=== PATIENT | female | born 1980 | race Hispanic/Latino ===

== ENCOUNTER 2017-05-11 16:31 | Emergency (ER) | payer OTHER ==
[2017-05-11 16:45] VITALS: BP 113/70; PULSE 82; RESP 20; TEMP 97.7; O2SAT 99
--- NOTE | 2017-05-11 17:16 | ED PDOC ---
HPI: Abdomen Time Seen by Provider: 05/11/17 17:14 Chief Complaint (Nursing): Abdominal Pain Chief Complaint (Provider): RLQ pain History Per: Patient History/Exam Limitations: no limitations Onset/Duration Of Symptoms: Days (started at 5am) Outside of [place] travel?: No Current Symptoms Are (Timing): Still Present Location Of Pain/Discomfort: RLQ Quality Of Discomfort: Sharp, Cramping, Stabbing Associated Symptoms: Chills, Loss Of Appetite. denies: Fever, Nausea, Vomiting , Diarrhea, Back Pain, Chest Pain, Constipation, Urinary Symptoms Exacerbating Factors: Movement Alleviating Factors: OTC Meds (took motrin now pain 11/15 was 06/17 ) Last Bowel Movement: Yesterday Abnormal Vaginal Bleeding: No Past Medical History Reviewed: Historical Data, Nursing Documentation, Vital Signs Vital Signs: Last Vital Signs Temp 97.7 F 05/11/17 16:43 Pulse 82 05/11/17 16:43 Resp 20 05/11/17 16:43 BP 113/70 05/11/17 16:43 Pulse Ox 99 05/11/17 17:17 - Medical History PMH: No Chronic Diseases - Family History Family History: States: No Known Family Hx - Allergies Allergies/Adverse Reactions: Allergies Allergy/AdvReac Type Severity Reaction Status Date / Time Penicillins Allergy URTICARIA Verified 05/11/17 16:42 Review of Systems ROS Statement: Except As Marked, All Systems Reviewed And Found Negative Constitutional: Positive for: Chills. Negative for: Fever Respiratory: Negative for: Cough, Shortness of Breath Gastrointestinal: Positive for: Abdominal Pain. Negative for: Nausea, Vomiting Physical Exam - Reviewed Nursing Documentation Reviewed: Yes Vital Signs Reviewed: Yes - Physical Exam Appears: Positive for: Well, Non-toxic, No Acute Distress Skin: Positive for: Normal Color, Warm, DRY Cardiovascular/Chest: Positive for: Regular Rate, Rhythm Respiratory: Positive for: CNT, Normal Breath Sounds Gastrointestinal/Abdominal: Positive for: Bowel Sounds, Soft, Tenderness (RLQ), Guarding. Negative for: Organomegaly, Mass Back: Positive for: Normal Inspection. Negative for: L CVA Tenderness, R CVA Tenderness Extremity: Positive for: Normal ROM Neurologic/Psych: Positive for: Alert, Oriented - Laboratory Results Result Diagrams: 05/11/17 17:30 05/11/17 17:30 - ECG O2 Sat by Pulse Oximetry: 99 - Progress ED Course And Treament: PT will get CT scan of belly to r/o appy pt offered pain control but declined. Disposition - Disposition Forms: [employer] (Albanian)
[2017-05-11 17:47] LABS: BASO # 0.1 K/uL (0.0-0.2); BASO % 0.6 % (0.0-2.0); EOS # 0.1 K/uL (0.0-0.7); EOS % 0.5 % (0.0-4.0); HEMATOCRIT 39.4 % (34.0-47.0); LYMPH # 2.1 K/uL (1.0-4.3); LYMPH % 17.3 % (20.0-40.0); MEAN CELL VOLUME 90.1 fl (81.0-99.0); MEAN CORPUSCULAR HEMOGLOBIN 29.6 pg (27.0-31.0); MEAN CORPUSCULAR HGB CONC 32.9 g/dL (33.0-37.0); MEAN PLATELET VOLUME 7.9 fl (7.2-11.7); MONO # 0.7 K/uL (0.0-0.8); NEUT # 9.3 K/uL (1.8-7.0); NEUT % 75.6 % (50.0-75.0); RED CELL DISTRIBUTION WIDTH 15.2 % (11.5-14.5); WHITE BLOOD COUNT 12.3 K/uL (4.8-10.8)
[2017-05-11 17:57] LABS: ALB/GLOB RATIO 1.6 (1.0-2.1); ALKALINE PHOSPHATASE 44 U/L (38-126); ALT/SGPT 37 U/L (9-52); AST/SGOT 28 U/L (14-36); BILIRUBIN,TOTAL 0.6 mg/dl (0.2-1.3); BLOOD UREA NITROGEN 10 mg/dl (7-17); CALCIUM 10.1 mg/dL (8.4-10.2); CARBON DIOXIDE 26 mmol/L (22-30); CHLORIDE 102 mmol/L (98-107); GFR AFRICAN-AMERICAN > 60; GLUCOSE,RANDOM 106 mg/dL (65-105); POTASSIUM 3.8 MMOL/L (3.6-5.0); SODIUM 141 mmol/l (132-148); TOTAL PROTEIN 7.8 G/DL (6.3-8.2)
[2017-05-11] MEDS ORDERED: Iohexol 300 100 ML IJ ONE (18:25)
[2017-05-11] MEDS ORDERED: Sodium Chloride 0.9% 50 ML IV ONE (18:25)
[2017-05-11 18:28] LABS: PARTIAL THROMBOPLASTIN TIME 24.8 Seconds (25.6-37.1)
--- NOTE | 2017-05-11 20:27 | ED PDOC ---
- Laboratory Results Result Diagrams: 05/11/17 17:30 05/11/17 17:30 - ECG O2 Sat by Pulse Oximetry: 99 - Progress ED Course And Treament: 1999 Signed out to me pending CT results. 2017 CT abd/pelvis: The appendix is top normal in size measuring 7 mm, and there is no significant periappendiceal stranding. There is a small amount of fluid within the appendiceal lumen. Overall the findings are equivocal and may be within normal limits or represent early appendicitis. Case d/w Dr. Watts, surgical scheduler, who will come evaluate patient in ED and discuss case with Dr. Bush (surgery administration physician). On my initial evaluation, pt. sitting down comfortably reading book and in no distress. Pt. informed of results and plan. Pt. still does not want any pain meds. States she wants to wait until she is evaluated by surgery. Last PO intake was at 1300 today. Abd soft with mild tenderness on RLQ area without rebound or guarding. [address] Watts in ED who spoke with Dr. Bush and both agree that pt. does not have appendicitis. Plan d/w Dr. Sommers who agrees. Pt. was given sandwich in ED and tolerated without any nausea or vomiting. Reports she is feeling much better. Pt. informed of plan and states she will return to ED immediately if pain worsens or any other concerns arise. Disposition - Clinical Impression Clinical Impression: Abdominal pain - POA Present On Arrival: None - Disposition Referrals: Adis Howard [Outside] Disposition: Routine/Home Disposition Time: 21:38 Condition: STABLE Additional Instructions: RETURN TO ED IMMEDIATELY IF PAIN PERSIST OR WORSENS OR IF FEVER DEVELOPS. FOLLOW UP WITH YOUR PMD ON FRIDAY WITHOUT FAIL. Instructions: Acute Abdominal Pain (ED) Forms: [employer] (French) Print Language: URDU
--- NOTE | 2017-05-11 21:15 | CP.PCM.CON ---
History of Present Illness - History of Present Illness History of Present Illness: Gen Sx: Dr Bush Pt is 36F with no PMH who presented to ED with sudden onset abdominal pain which awoke her around 3 am this morning. Pt reports pain is band-like across the lower abdomen. Denies any f/c, n/v, sob or chest pain. States pain has been consistent and does not radiate anywhere. Pt currently states she has an appetite and would be able to eat if given food. Of note pt reports her menstrual cycles have become increasing more painful over the past several months. CT scan confirms right sided ovarian cyst. Review of Systems - Review of Systems All systems: reviewed and no additional remarkable complaints except (as per hpi ) Past Patient History - Past Social History Smoking Status: Never Smoked - PSYCHIATRIC Hx Substance Use: No - SURGICAL HISTORY Hx Surgeries: No - ANESTHESIA Hx Anesthesia: No Meds Allergies/Adverse Reactions: Allergies Allergy/AdvReac Type Severity Reaction Status Date / Time Penicillins Allergy URTICARIA Verified 05/11/17 16:42 Physical Exam - Constitutional Appears: Non-toxic, No Acute Distress - ENT Exam ENT Exam: Mucous Membranes Moist - Respiratory Exam Respiratory Exam: absent: Accessory Muscle Use, Respiratory Distress - Cardiovascular Exam Cardiovascular Exam: absent: Tachycardia - GI/Abdominal Exam GI & Abdominal Exam: Soft, Tenderness (suprapubic, RLQ, LLQ). absent: Distended , Firm, Guarding, Hernia - Rectal Exam Rectal Exam: absent: Deferred - Extremities Exam Extremities exam: Negative for: calf tenderness, tenderness - Neurological Exam Neurological exam: Alert, Oriented x3 - Psychiatric Exam Psychiatric exam: Normal Affect, Normal Mood Results - Vital Signs Recent Vital Signs: Last Vital Signs Temp 97.7 F 05/11/17 16:43 Pulse 82 05/11/17 16:43 Resp 20 05/11/17 16:43 BP 113/70 05/11/17 16:43 Pulse Ox 99 05/11/17 20:27 - Labs Result Diagrams: 05/11/17 17:30 05/11/17 17:30 Labs: Laboratory Results - last 24 hr 05/11/17 05/11/17 05/11/17 17:30 17:30 17:50 WBC 12.3 H RBC 4.37 Hgb 13.0 Hct 39.4 MCV 90.1 MCH 29.6 MCHC 32.9 L RDW 15.2 H Plt Count 312 MPV 7.9 Neut % (Auto) 75.6 H Lymph % (Auto) 17.3 L [place] % (Auto) 6.0 Eos % (Auto) 0.5 Baso % (Auto) 0.6 Neut # 9.3 H Lymph # 2.1 [place] # 0.7 Eos # 0.1 Baso # 0.1 PT INR APTT Sodium 141 Potassium 3.8 Chloride 102 Carbon Dioxide 26 Anion Gap 17 BUN 10 Creatinine 0.7 Est GFR ( Amer) > 60 Est GFR (Non-Af Amer) > 60 Random Glucose 106 H Calcium 10.1 Total Bilirubin 0.6 AST 28 ALT 37 Alkaline Phosphatase 44 Total Protein 7.8 Albumin 4.7 Globulin 3.0 Albumin/Globulin Ratio 1.6 Blood Type A POSITIVE Antibody Screen Negative BBK History Checked No verified bt 05/11/17 17:50 WBC RBC Hgb Hct MCV MCH MCHC RDW Plt Count MPV Neut % (Auto) Lymph % (Auto) [place] % (Auto) Eos % (Auto) Baso % (Auto) Neut # Lymph # [place] # Eos # Baso # PT 10.6 INR 1.0 APTT 24.8 L Sodium Potassium Chloride Carbon Dioxide Anion Gap BUN Creatinine Est GFR ( Amer) Est GFR (Non-Af Amer) Random Glucose Calcium Total Bilirubin AST ALT Alkaline Phosphatase Total Protein Albumin Globulin Albumin/Globulin Ratio Blood Type Antibody Screen BBK History Checked Assessment & Plan - Assessment and Plan (Free Text) Assessment: 36F with lower abdominal pain; ruptured ovarian cyst Plan: high suspicion of ruptured of ovarian cyst ok to feed pt clear for discharge from surgical standpoint motrin for pain return to ED if symptoms worsen d/w Dr Eleazar Schroeder, PGY3
--- NOTE | 2017-05-12 12:27 | CT ---
PROCEDURE: CT abdomen pelvis dated 05/11/2017 HISTORY: RLQ pain(+) alaney COMPARISON: No prior TECHNIQUE: Contiguous axial images of the abdomen and pelvis performed following intravenous injection of approximately 98 cc Omnipaque 300 contrast material. Coronal and Sagittal reformats generated. Radiation dose: Total exam DLP = 1013.43 mGy-cm. This CT exam was performed using one or more of the following dose reduction techniques: Automated exposure control, adjustment of the mA and/or kV according to patient size, and/or use of iterative reconstruction technique. FINDINGS: LOWER THORAX: Minor bibasilar atelectasis. No focal basilar consolidation effusion or pneumothorax. Small hiatal hernia. Heart size normal. No significant pericardial effusion. LIVER: Liver is enlarged measuring over 20 cm in CC dimension. Mild diffuse fatty hepatic infiltration. There is a tiny approximately 5.5 mm elliptical shaped low-attenuation focus superior aspect right lobe liver of uncertain etiology. Rule out small cyst or hemangioma. Followup interval could be performed to assess stability. No other definitive of focal areas of abnormal attenuation seen throughout the remaining hepatic parenchyma. Portal and splenic veins are opacified. GALLBLADDER AND BILE DUCTS: Gallbladder physiologically distended. No evidence of intraluminal gallbladder calculi. PANCREAS: The pancreas appears grossly unremarkable. SPLEEN: Spleen exhibits normal size and attenuation pattern. No mass or calcification ADRENALS: No adrenal lesions. KIDNEYS AND URETERS: Kidneys demonstrate symmetric nephrograms. No evidence of nephrolithiasis or hydronephrosis. BLADDER: Urinary bladder is physiologically distended. No evidence of intraluminal urinary bladder calculi. REPRODUCTIVE: There is a small approximately 18 mm x 16 mm right adnexal region. Rule out on involuting or hemorrhagic cyst. APPENDIX: In the appendix is best seen on axial image number [id number] and coronal image number [id number]. The appendix measures up to 7 mm diameter with minimally enhancing wall. . No obvious infiltration/stranding changes seen in adjacent the mesentery. The Findings are equivocal for acute appendicitis. Clinical correlation with physical exam and history recommended. BOWEL: Evaluation of the bowel is limited due to the lack of oral contrast material. Stomach is incompletely distended. Visualized loops of small bowel exhibit normal contour and caliber. No evidence of acute mechanical small bowel obstruction. Stool and air seen throughout the colon with a moderate amount of stool in the cecum and ascending colon region suggesting mild fecal retention/ constipation. PERITONEUM: No evidence of free intraperitoneal air. No free or loculated fluid collections. In the. LYMPH NODES: Unremarkable. No enlarged lymph nodes. VASCULATURE: No evidence of abdominal aortic or iliac artery aneurysms. . BONES: Minor multilevel degenerative spondylosis of the lower thoracic and lumbar spine most significantly affecting L5-S1 disc space. OTHER FINDINGS: None. IMPRESSION: Small involuting and or hemorrhagic right ovarian cyst. The appendix measures up to 7 mm in diameter with minimal enhancing wall. Rule out early acute appendicitis. Mild constipation. Hepatomegaly. Small low-attenuation focus within superior aspect right lobe liver too small to characterize though this could represent a tiny cyst or hemangioma. Note preliminary report provided by overnight radiology service.
== END 2017-05-11 21:54 | disposition home or self-care (01) ==
LOC: H.ER 16:31
DX: N83.201 Unspecified ovarian cyst, right side (principal); Z88.0 Allergy status to penicillin
CPT/HCPCS: 74177; 80053; 81025; 85025; 85610; 85730; 86850; 86900; 99284; Q9967